=== PATIENT | male | born 1995 | race Hispanic/Latino ===

== ENCOUNTER 2017-01-16 22:43 | Emergency (ER) | payer SELFPAY ==
[2017-01-17] MEDS ORDERED: GENTAMICIN15 ML/BTL OU (00:19)
[2017-01-17] MEDS ORDERED: (None)3.5 GM OU (00:19)
[2017-01-17 00:25] VITALS: BP 136/106
== END 2017-01-17 00:25 | disposition home or self-care (01) | DRG 125 ==
LOC: ED 22:43
DX: H10.213 Acute toxic conjunctivitis, bilateral (principal); H53.143 Visual discomfort, bilateral

== ENCOUNTER 2017-09-09 19:09 | Emergency (ER) | payer BC ==
[~2017-09-09 19:09] MED LIST: (None)3.5 GM OU; GENTAMICIN15 ML/BTL OU
[2017-09-09] MEDS ORDERED: POLYTRIM OD (19:26)
[2017-09-09 19:37] VITALS: BP 126/87
== END 2017-09-09 19:40 | disposition home or self-care (01) | DRG 125 ==
LOC: ED 19:09
DX: H00.012 Hordeolum externum right lower eyelid (principal); H57.11 Ocular pain, right eye

== ENCOUNTER 2019-02-09 09:08 | Emergency (ER) | payer BC ==
[~2019-02-09] VITALS: Ht 165.1 cm; Wt 79.0 kg
[~2019-02-09 09:08] MED LIST changes: +POLYTRIM OD
[2019-02-09] MEDS ORDERED: CYCLOBENZAPR5 MG PO (09:26)
[2019-02-09 09:44] VITALS: BP 142/92
== END 2019-02-09 09:44 | disposition home or self-care (01) | DRG 552 ==
LOC: ED 09:08
DX: M54.6 Pain in thoracic spine (principal); H54.40 Blindness, one eye, unspecified eye